=== PATIENT | male | born 2000 | race Caucasian/White ===

== ENCOUNTER 2018-08-03 09:57 | Emergency (ER) | payer OTHER ==
[~2018-08-03] VITALS: Ht 180.3 cm; Wt 105.5 kg
[2018-08-03 10:03] VITALS: Ht 180.3 cm; Wt 105.5 kg
[2018-08-03 11:50] LABS: BASOPHILS 0.1 % (0-2); EOSINOPHILS 1.6 % (0-7); HEMATOCRIT 45.4 % (42.0-54.0); HEMOGLOBIN 15.9 g/dL (13.5-17.5); IMMATURE GRANULOCYTES 0.4 % (0-5); MCH 32.4 pg (26.0-34.0); MCV 92.7 fL (80.0-100.0); MEAN PLATELET VOLUME 12.7 fL (7.4-10.4); MONOCYTES 11.1 % (2-11); NEUTROPHILS 77.8 % (40-80); PLATELET COUNT 156 10x3/uL (130-400); WBC 11.2 10x3/uL (4.8-10.8)
[2018-08-03 11:59] LABS: ALKALINE PHOSPHATASE 52 U/L (46-116); ALT (SGPT) 92 U/L (10-68); BILIRUBIN - TOTAL 0.85 mg/dL (0.2-1.3); CALC OSMOLALITY 271 mosm/kg (275-300); CALCIUM 9.3 mg/dL (8.5-10.1); CARBON DIOXIDE 28.2 mmol/L (21.0-32.0); CHLORIDE - SERUM 101 mmol/L (98-107); CREATININE - SERUM 1.1 mg/dL (0.6-1.3); GLUCOSE 107 mg/dL (74-106); POTASSIUM - SERUM 4.2 mmol/L (3.5-5.1); PROTEIN - SERUM 7.7 g/dL (6.4-8.2); SODIUM 136 mmol/L (136-145); UREA NITROGEN 13 mg/dL (7-18); eGFR NON AFRICAN AMERICAN > 90 mL/min (90-120)
[2018-08-03 12:01] LABS: MONO NEGATIVE (NEGATIVE)
[2018-08-03] MEDS ORDERED: OMNICEF300 MG PO (12:27)
[2018-08-03] MEDS ORDERED: VENTOLIN HFA18 GM INH (12:27)
[2018-08-03 12:57] VITALS: BP 126/84
[2018-08-04 13:17] LABS: EBV - EARLY ANTIGEN AB IGG <9.0 U/mL (0.0-8.9); EBV VIRAL CAPSID AB IGG 57.7 U/mL (0.0-17.9); EBV VIRAL CAPSID AB IGM <36.0 U/mL (0.0-35.9)
== END 2018-08-03 12:58 | disposition home or self-care (01) ==
LOC: D.ER 09:57
PROVIDERS: Family Medicine
DX: J01.90 Acute sinusitis, unspecified (principal); J40 Bronchitis, not specified as acute or chronic; F17.200 Nicotine dependence, unspecified, uncomplicated